=== PATIENT | female | born 1990 | race African-American/Black ===

== ENCOUNTER 2020-02-16 19:20 | Emergency (ER) | payer OTHER ==
[~2020-02-16] VITALS: Ht 167.6 cm; Wt 59.0 kg
[2020-02-16] MEDS ORDERED: SODIUM CHLORIDE 0.9% 1,000 ML IV ONE (20:30)
[2020-02-16 21:10] LABS: BASOPHILS % 0.7 % (0.0-2.0); EOSINOPHILS % 1.2 % (0.0-5.0); HEMOGLOBIN. 10.1 g/dL (12.0-16.0); LYMPHOCYTES % 15.2 % (20.0-50.0); MEAN CORPUSCULAR HEMOGLOBIN 23.5 pg (28.0-32.0); MEAN CORPUSCULAR VOLUME 74.1 fL (81.0-99.0); MEAN PLATELET VOLUME 8.4 fl (7.4-10.4); MONOCYTES % 5.9 % (2.0-8.0); PLATELET 272 x1000/uL (130-400); RED BLOOD CELL COUNT 4.31 mill/uL (4.2-5.4); RED CELL DISTRIBUTION WIDTH 16.4 % (11.6-14.6)
[2020-02-16 21:14] LABS: CHLORIDE 111 mEq/L (98-107)
[2020-02-16 21:18] LABS: INR 1.1; PARTIAL THROMBOPLASTIN TIME 21.7 sec (23.4-31.0); PROTHROMBIN TIME 11.5 sec (9.6-11.0)
[2020-02-16 21:25] LABS: HCG SCREEN NEGATIVE
[2020-02-16] MEDS ORDERED: IBUPROFEN 600MG TABLET PO ONE (21:30)
[2020-02-16 21:33] VITALS: BP 156/90
[2020-02-16] MEDS ORDERED: IOHEXOL-300 100 ML BOTTLE ONE (22:00)
[2020-02-16] MEDS ORDERED: POTASSIUM CHLORIDE 20MEQ TABLET SR PO ONE (22:15)
== END 2020-02-17 00:43 | disposition home or self-care (01) ==
LOC: ER 19:20
DX: S52.592A Other fractures of lower end of left radius, initial encounter for closed fracture (principal); Y08.89XA Assault by other specified means, initial encounter; Y93.89 Activity, other specified; Y92.89 Other specified places as the place of occurrence of the external cause; Y99.8 Other external cause status; Z98.890 Other specified postprocedural states; Z88.6 Allergy status to analgesic agent; Z88.5 Allergy status to narcotic agent
CPT/HCPCS: 29125; 36415; 71045; 73110; 74177; 80053; 84703; 85025; 85610; 85730; 99285; J7030; Q9967